=== PATIENT | female | born 1960 | race Hispanic/Latino ===

== ENCOUNTER 2017-07-16 10:48 | Emergency (ER) | payer OTHER, BC ==
[2017-07-16 10:55] VITALS: BMI 19.2
[2017-07-16 10:57] VITALS: BP 136/98; PULSE 70; RESP 46; TEMP 98; O2SAT 98
--- NOTE | 2017-07-16 12:50 | RAD ---
PROCEDURE: Left Knee Radiographs. HISTORY: Pain. COMPARISON: None. FINDINGS: BONES: No acute fracture. JOINTS: Unremarkable JOINT EFFUSION: None. OTHER FINDINGS: None. IMPRESSION: No demonstrated fracture or dislocation.
--- NOTE | 2017-07-16 13:20 | ED PDOC ---
Lower Extremity Pain/Injury Time Seen by Provider: 07/16/17 10:59 Chief Complaint (Nursing): Lower Extremity Problem/Injury Chief Complaint (Provider): Left knee pain, knee cap s/p fall last night at work History Per: Patient History/Exam Limitations: no limitations Onset/Duration Of Symptoms: Days Current Symptoms Are (Timing): Still Present Additional History Per: Patient Additional Complaint(s): PT states her right foot slipped and she landed on the left knee. No numbness/ tingling. Pt reports taking motrin last night and 0630 today. Past Medical History Vital Signs: Last Vital Signs Temp 98.0 F 07/16/17 10:56 Pulse 70 07/16/17 10:56 Resp 46 H 07/16/17 10:56 BP 136/98 H 07/16/17 10:56 Pulse Ox 98 07/16/17 10:56 - Medical History PMH: Anxiety, Depression Denies: Diabetes, Hepatitis, HIV, HTN, Seizures, Sexually Transmitted Disease - Family History Family History: States: Unknown Family Hx - Home Medications Home Medications: Ambulatory Orders Medication Instructions Recorded Ibuprofen [Motrin Tab] 800 mg PO Q6H PRN #20 tab 07/16/17 - Allergies Allergies/Adverse Reactions: Allergies Allergy/AdvReac Type Severity Reaction Status Date / Time No Known Allergies Allergy Verified 09/08/16 23:04 Physical Exam - Reviewed Nursing Documentation Reviewed: Yes Vital Signs Reviewed: Yes - Physical Exam Appears: Positive for: Well, Non-toxic, No Acute Distress Head Exam: Positive for: ATRAUMATIC, NORMAL INSPECTION, NORMOCEPHALIC Skin: Positive for: Normal Color, Warm, DRY Eye Exam: Positive for: Normal appearance ENT: Positive for: Normal ENT Inspection Neck: Positive for: Normal, Painless ROM Respiratory: Negative for: Accessory Muscle Use, Respiratory Distress Back: Positive for: Normal Inspection Extremity: Positive for: Normal ROM, Tenderness (LEft patella, localized to distal area ), Swelling. Negative for: Deformity Neurologic/Psych: Positive for: Alert, Oriented - ECG O2 Sat by Pulse Oximetry: 98 Disposition - Clinical Impression Clinical Impression: Patella fracture - Patient ED Disposition Is Patient to be Admitted: No Counseled Patient/Family Regarding: Diagnosis, Need For Followup - Disposition Referrals: Deuce Espitia MD [Staff Provider] - Disposition: Routine/Home Disposition Time: 13:17 Condition: GOOD Additional Instructions: Ice, elevation. Please follow-up with orthopedics. Prescriptions: Ibuprofen [Motrin Tab] 800 mg PO Q6H PRN #20 tab PRN Reason: Pain Instructions: Patellar Fracture (ED)
== END 2017-07-16 14:14 | disposition home or self-care (01) ==
LOC: H.ER 10:48
DX: S82.001A Unspecified fracture of right patella, initial encounter for closed fracture (principal); W19.XXXA Unspecified fall, initial encounter; Y99.0 Civilian activity done for income or pay; F32.9 Major depressive disorder, single episode, unspecified; F41.9 Anxiety disorder, unspecified